=== PATIENT | male | born 1970 | race American Indian/Alaskan Native ===

== ENCOUNTER 2020-04-25 07:43 | Day surgery (SDC) | payer OTHER ==
[~2020-04-25 07:43] MED LIST: LACTATED RINGERS 1,000 ML IV SCH; MIDAZOLAM 2 MG/2 ML INJ IV NR; SCOPOLAMINE TRANSDERMAL PATCH 72 HR TD NR
[2020-04-25] MEDS ORDERED: oxyCODONE /ACETAMINOPHEN 5-325MG TAB PO PRN (08:19)
[2020-04-25] MEDS ORDERED: ONDANSETRON 4 MG/2 ML INJ IV PRN (08:19)
[2020-04-25] MEDS ORDERED: fentaNYL 100 MCG/2 ML INJ IV PRN (08:19)
--- NOTE | 2020-04-25 08:19 | Anesthesia Day of Surgery ---
Anesthesia Day of Surgery - Day of Surgery Patient Examined: Yes Patient H&P Reviewed: Yes Patient is NPO: Yes Beta Blockers: Yes (carvedilol today AM)
--- NOTE | 2020-04-25 08:19 | Anesthesia Consultation ---
Anesthesia Consult and Med Hx Date of service: 04/25/20 - Airway Anesthetic Teeth Evaluation: Poor ROM Head & Neck: Adequate Mental/Hyoid Distance: Adequate Mallampati Class: Class III Intubation Access Assessment: Possibly Difficult - Pulmonary Exam CTA: Yes - Cardiac Exam Cardiac Exam: RRR - Pre-Operative Health Status ASA Pre-Surgery Classification: ASA3 Proposed Anesthetic Plan: MAC - Pulmonary Hx Smoking: No Hx Respiratory Symptoms: No Hx Sleep Apnea: No (HIGH ON WICHO PRESCREEN) - Cardiovascular System Hx Hypertension: Yes (took antihypertensives this morning) Hx Heart Attack/AMI: No - Central Nervous System CVA: No Hx Psychiatric Problems: Yes (anxiety) - Gastrointestinal Hx Gastroesophageal Reflux Disease: Yes (well controlled) - Endocrine Hx Renal Disease: No Hx Liver Disease: No Hx Insulin Dependent Diabetes: No Hx Non-Insulin Dependent Diabetes: No Hx Thyroid Disease: No - Other Systems Hx Obesity: Yes (BMI 42) - Additional Comments Anesthesia Medical History Comments: Hx PONV.
[2020-04-25] MEDS ORDERED: FAMOTIDINE 20 MG/2 ML INJ IV NR (08:34)
[2020-04-25] MEDS ORDERED: FAMOTIDINE 20 MG/2 ML INJ IV ONE (08:37)
[2020-04-25] MEDS ORDERED: BUPIVACAINE/PF (0.5%) 5 MG/1 ML 30 ML VIAL INFILTRATI ONE ×2 (09:04→10:06)
[2020-04-25] MEDS ORDERED: LIDOCAINE (1%) 10 MG/1 ML VIAL 20 ML MDV ONE (09:04)
[2020-04-25] MEDS ORDERED: LIDOCAINE MPF (2%) 20 MG/1 ML VIAL 5 ML ONE (09:06)
[2020-04-25] MEDS ORDERED: HYDROmorphone 1 MG/1 ML INJ ONE (09:06)
[2020-04-25] MEDS ORDERED: ONDANSETRON 4 MG/2 ML INJ ONE (09:06)
[2020-04-25] MEDS ORDERED: propofoL 200 MG/20 ML VIAL IV ONE ×2 (09:06→10:01)
[2020-04-25] MEDS ORDERED: KETAMINE/STERILE WATER 50 MG/ML SYRINGE ONE (09:34)
[2020-04-25] MEDS ORDERED: LIDOCAINE (1%) 10 MG/1 ML VIAL 20 ML MDV INFILTRATI ONE (10:06)
[2020-04-25] MEDS ORDERED: SODIUM CHLORIDE 0.9% IRR 1,500 ML BOTTLE IR ONE (10:07)
--- NOTE | 2020-04-25 10:26 | Short Stay Summary ---
Short Stay Documentation Date of service: 04/25/20 - History Principal diagnosis: soft tissue mass scalp H&P: obtained from office - Allergies and Medications Current Medications: Allergies No Known Allergies Allergy (Unverified 04/19/20 12:57) Home Medications Medication Instructions Recorded Confirmed Last Taken Type Amlodipine Besylate 10 mg PO DAILY 04/19/20 04/25/20 04/25/20 07:30 History Aspirin 81 mg PO DAILY 04/19/20 04/25/20 04/23/20 History Atorvastatin Calcium 40 mg PO DAILY 04/19/20 04/19/20 04/24/20 History Hydralazine HCl 50 mg PO TID 04/19/20 04/25/20 04/25/20 07:30 History Indapamide [Lozol] 2.5 mg PO QDAY 04/19/20 04/25/20 04/25/20 07:30 History Sumatriptan 1 tab PO PRN 04/19/20 04/25/20 04/24/20 History carvediloL 25 mg PO BID 04/19/20 04/19/20 04/24/20 History Active Medications Famotidine (Pepcid) 20 mg IV PREOP NR Stop: 04/25/20 23:59 Last Admin: 04/25/20 08:45 Dose: 20 mg Documented by: Fentanyl (Sublimaze) 50 mcg IV Q5MIN PRN PRN Reason: Pain , Severe (7-10) Stop: 04/25/20 23:00 Lactated Ringer's (Lactated Ringers) 1,000 mls @ 100 mls/hr IV DIRECT KRISTIE Stop: 04/25/20 23:59 Last Admin: 04/25/20 08:40 Dose: 100 mls/hr Documented by: Cefazolin Sodium 3 gm/ Sodium (Chloride) 100 mls @ 100 mls/30 min IV PREOP NR Stop: 04/25/20 11:00 Midazolam HCl (Versed) 2 mg IV PREOP NR Stop: 04/25/20 23:59 Last Admin: 04/25/20 08:40 Dose: 2 mg Documented by: Ondansetron HCl (Zofran) 4 mg IV ONCE PRN PRN Reason: Nausea And Vomiting Stop: 04/25/20 18:00 Oxycodone/Acetaminophen (Percocet 5/325) 1 tab PO ONCE PRN PRN Reason: Pain, Moderate (4-6) Stop: 04/25/20 18:00 Scopolamine (Transderm-Scop) 1 each TD PREOP NR Stop: 04/25/20 23:59 Last Admin: 04/25/20 08:30 Dose: 1 each Documented by: - Brief post op/procedure progress note Date of procedure: 04/25/20 Pre-op diagnosis: soft tissue mass scalp Post-op diagnosis: same Procedure: excision soft tissue mass scalp Anesthesia: MAC, local Findings: 3.6 cm fatty mass consistent with lipoma Surgeon: YURI HERNANDEZ Estimated blood loss: minimal Pathology: list (soft tissue mass scalp) Specimen disposition: to lab Condition: stable - Hospital course Hospital course: Pt observed in PACU and discharged to home in stable condition when criteria met - Disposition Condition at discharge: Good Disposition: DC-01 TO HOME OR SELFCARE Short Stay Discharge Plan Activity: no restrictions Diet: regular Wound: open to air, per your surgeon's advice Additional Instructions: SEE PRINTED DISCHARGE PAPERWORK Follow up with: [facility] [Primary Care Provider] - 7 Days YURI HERNANDEZ DO [Staff Physician] - 10 Days Prescriptions: HYDROcodone/APAP 5-325 [Scalf 5/325] 1 each PO Q6HR PRN #5 tablet PRN Reason: Pain , Severe (7-10)
--- NOTE | 2020-04-25 11:05 | Operative Report ---
Operative Report Operative Report: Date of procedure: 04/25/20 Pre-op diagnosis: soft tissue mass scalp Post-op diagnosis: same Procedure: excision soft tissue mass scalp Anesthesia: MAC, local Findings: 3.6 cm fatty mass consistent with lipoma Surgeon: YURI HERNANDEZ Estimated blood loss: minimal Pathology: list (soft tissue mass scalp) Specimen disposition: to lab Condition: stable Hospital course: Pt observed in PACU and discharged to home in stable condition when criteria met HPI and indication: Patient is a 49-year-old male who was referred to the surgery clinic by the [facility] for a mass on his scalp. The patient wanted the mass removed. All risk, benefits, alternatives to surgery were discussed with the patient and questions answered. The patient was agreeable to proceed and consent was obtained. Procedure in detail: Patient was identified in the preoperative area, take back to operating room and placed on the operating table in supine position. After anesthesia was induced the patient was placed in left lateral decubitus position and all bony prominences padded appropriately. Patient was secured to the operating room table. The scalp/occiput was prepped and draped in usual sterile fashion a timeout performed. Local anesthetic was infiltrated into skin at the intended incision site over the area of the mass. An incision was made using a 15 blade and dissection carried down through the skin and subcutaneous tissue using electrocautery until the mass was identified. The mass was circumferentially dissected free from the surrounding tissue and scar tissue divided using a combination of electrocautery, hemostat, iris scissors. Once the mass was circumferentially dissected free from the underlying tissue it was removed from the wound and measured at 3.6 cm. It was a fatty mass consistent with a lipoma. The wound was irrigated and checked for hemostasis. Any minor venous bleeding was controlled using electrocautery and hemostasis ensured. The wound was once again irrigated. Wound was then closed in a layered fashion. The deep layer was closed using interrupted 3-0 Vicryl suture. The skin was approximated using a running 3-0 Monocryl subcuticular stitch and Dermabond. The end of the case all sponge, instrument, sharp counts were correct x2. The patient tolerated the procedure well. He was awoken from anesthesia and taken to PACU in stable condition.
--- NOTE | 2020-04-25 12:13 | Post Anesthesia Evaluation ---
- Post Anesthesia Evaluation Patient Participated: Yes Airway Patent: Yes Stable Respiratory Function: Yes Nausea/Vomiting: No Temp > 96.8F: Yes Pain Manageable: Yes Adequeate Hydration: Yes Anesthesia Complications: No
[2020-04-25 13:38] VITALS: BP 128/72
== END 2020-04-25 07:44 | disposition home or self-care (01) ==
LOC: OR 07:43
PROVIDERS: ATTEND Surgery
DX: M79.89 Other specified soft tissue disorders (principal); Z20.828 Contact with and (suspected) exposure to other viral communicable diseases; D17.0 Benign lipomatous neoplasm of skin and subcutaneous tissue of head, face and neck; G43.909 Migraine, unspecified, not intractable, without status migrainosus; E78.00 Pure hypercholesterolemia, unspecified; K21.9 Gastro-esophageal reflux disease without esophagitis; E66.9 Obesity, unspecified; M19.90 Unspecified osteoarthritis, unspecified site; F41.9 Anxiety disorder, unspecified; Z79.899 Other long term (current) drug therapy; Z79.82 Long term (current) use of aspirin; Z87.442 Personal history of urinary calculi; Z72.89 Other problems related to lifestyle; Z98.890 Other specified postprocedural states; Z68.41 Body mass index [BMI] 40.0-44.9, adult
CPT/HCPCS: 21012; 88304; J0690; J1170; J2250; J2405; J2704; J3490; J7120; U0003